=== PATIENT | female | born 1995 | race Caucasian/White ===

== ENCOUNTER 2017-01-17 11:59 | Emergency (ER) | payer OTHER ==
[~2017-01-17] VITALS: Ht 172.7 cm; Wt 154.6 kg
[2017-01-17] MEDS ORDERED: LORazepam 1 MG TABLET PO ONE (12:45)
[2017-01-17 13:20] VITALS: BP 118/72
== END 2017-01-17 13:55 | disposition home or self-care (01) ==
LOC: EMS 12:01
DX: F32.9 Major depressive disorder, single episode, unspecified (principal); F41.9 Anxiety disorder, unspecified
CPT/HCPCS: 99284